=== PATIENT | male | born 1945 | race African-American/Black ===

== ENCOUNTER 2020-03-02 09:12 | Inpatient (IN) ==
[2020-03-02] MEDS ORDERED: DEXAMETHASONE 4 MG/1 ML VIAL IV STA (09:34)
[2020-03-02] MEDS ORDERED: ACETAMINOPHEN 500 MG TABLET PO STA (09:37)
[2020-03-02] MEDS ORDERED: IBUPROFEN 600 MG TABLET PO STA (09:40)
[2020-03-02 10:10] LABS: Basophils % 0.2 % (0.0-0.8); Hematocrit 46.6 VOL% (42.0-52.0); Hemoglobin 14.8 GM/DL (14.0-18.0); Immature Granulocytes % 0.5 %; Immature Granulocytes Absolute 0.03 #; Lymphocytes # 0.7 10*3/uL (1.4-4.0); Lymphocytes % 10.8 % (21.2-54.2); Mean Corpuscular HGB Conc 31.8 GM/DL (32-36); Mean Corpuscular Volume 86.9 FL (87-102); Mean Platelet Volume 12.9 FL (9.6-12.0); Monocytes % 6.1 % (1.7-12.7); NRBC # 0.02 10*3/uL; Neutrophils % 82.4 % (38.7-73.9); Platelet Count 124 T/CUMM (130-400); Red Blood Count 5.36 MC/CUMM (3.8-5.5); Red Cell Distribution Width 14.1 % (9.3-17.3); White Blood Count 6.2 T/CUMM (4-12)
[2020-03-02] MEDS ORDERED: AZITHROMYCIN INJ 500 MG in SODIUM CHLORIDE 0.9% 250 ML IV STA (10:14)
[2020-03-02] MEDS ORDERED: CETIRIZINE 10 MG TABLET PO STA (10:14)
[2020-03-02] MEDS ORDERED: FAMOTIDINE 20 MG/2 ML VIAL IV STA (10:14)
[2020-03-02 10:38] LABS: Albumin 3.1 G/DL (3.4-5.0); Bilirubin,Total 0.5 MG/DL (0.2-1.0); Osmolality,Calculated 282.2 MOS/KG (273-304); Potassium 4.4 MMOL/L (3.5-5.1); Total Protein 7.1 G/DL (6.4-8.3)
[2020-03-02] MEDS ORDERED: DEXTROSE 50% 25 GM/50 ML VIAL IV PRN (11:09)
[2020-03-02] MEDS ORDERED: GLUCAGON 1 MG VIAL IM PRN (11:09)
[2020-03-02] MEDS ORDERED: REMDESIVIR 200 MG in SODIUM CHLORIDE 0.9% 210 ML IV ONE (16:00)
[2020-03-02] MEDS: ENOXAPARIN 40 MG/0.4 ML SYRINGE SUBCUT SCH (17:20)
[2020-03-02] MEDS: cefTRIAXone 1,000 MG in SYRINGE 1 EACH IV SCH (17:25)
[2020-03-02] MEDS: ALBUTEROL INHALER 18 GM INH SCH (19:00)
[2020-03-02] MEDS: ASCORBIC ACID 500 MG TABLET PO SCH (21:00)
[2020-03-02] MEDS: FLUTICASONE/SALMETEROL 500-50 DISKUS 14 DOSE INH SCH (21:00)
[2020-03-03 04:38] LABS: Basophils % 0.1 % (0.0-0.8); Hematocrit 50.9 VOL% (42.0-52.0); Hemoglobin 15.9 GM/DL (14.0-18.0); Immature Granulocytes % 0.7 %; Immature Granulocytes Absolute 0.06 #; Lymphocytes # 1.2 10*3/uL (1.4-4.0); Lymphocytes % 13.6 % (21.2-54.2); Mean Corpuscular HGB Conc 31.2 GM/DL (32-36); Mean Corpuscular Volume 87.5 FL (87-102); Mean Platelet Volume 12.6 FL (9.6-12.0); NRBC # 0.04 10*3/uL; Neutrophils % 80.6 % (38.7-73.9); Platelet Count 144 T/CUMM (130-400); Red Blood Count 5.82 MC/CUMM (3.8-5.5); Red Cell Distribution Width 14.1 % (9.3-17.3); White Blood Count 8.5 T/CUMM (4-12)
[2020-03-03 05:03] LABS: Bilirubin,Total 0.4 MG/DL (0.2-1.0); Calcium 9.6 MG/DL (8.5-10.1); Osmolality,Calculated 286.8 MOS/KG (273-304); Potassium 4.4 MMOL/L (3.5-5.1); Total Protein 8.1 G/DL (6.4-8.3)
[2020-03-03 05:43] LABS: Risk Ratio 4.43; VLDL CHOLESTEROL 33.6 MG/DL
[2020-03-03] MEDS: ALBUTEROL INHALER 18 GM INH SCH ×3 (08:16→19:59)
[2020-03-03] MEDS: ZINC GLUCONATE 50 MG TABLET PO SCH (09:20)
[2020-03-03] MEDS: CETIRIZINE 10 MG TABLET PO SCH (09:20)
[2020-03-03] MEDS: CHOLECALCIFEROL 1,000 UNIT TABLET PO SCH (09:20)
[2020-03-03] MEDS: ASCORBIC ACID 500 MG TABLET PO SCH ×2 (09:20→21:41)
[2020-03-03] MEDS: AZITHROMYCIN 250 MG TABLET PO SCH (09:20)
[2020-03-03] MEDS: FLUTICASONE/SALMETEROL 500-50 DISKUS 14 DOSE INH SCH ×2 (09:22→21:39)
[2020-03-03] MEDS: DEXAMETHASONE 4 MG/1 ML VIAL IV SCH (09:23)
[2020-03-03] MEDS ORDERED: ACETAMINOPHEN 325 MG TABLET ONE (09:47)
[2020-03-03] MEDS: REMDESIVIR 100 MG in SODIUM CHLORIDE 0.9% 100 ML IV SCH (09:50)
[2020-03-03] MEDS ORDERED: ENOXAPARIN 60 MG/0.6 ML SYRINGE ONE (11:45)
[2020-03-03] MEDS: ENOXAPARIN 40 MG/0.4 ML SYRINGE SUBCUT SCH (11:46)
[2020-03-03] MEDS: INSULIN REGULAR 100 UNIT/ML SUBCUT SCH ×3 (11:54→21:41)
[2020-03-03] MEDS ORDERED: SODIUM CHLORIDE 0.9% 1,000 ML IV PRN (14:49)
[2020-03-03] MEDS: cefTRIAXone 1,000 MG in SYRINGE 1 EACH IV SCH (14:51)
[2020-03-03] MEDS: INSULIN GLARGINE 100 UNIT/ML SUBCUT SCH (21:40)
[2020-03-04 00:57] LABS: Basophils % 0.2 % (0.0-0.8); Hematocrit 45.7 VOL% (42.0-52.0); Hemoglobin 14.5 GM/DL (14.0-18.0); Immature Granulocytes % 0.6 %; Immature Granulocytes Absolute 0.04 #; Lymphocytes # 0.7 10*3/uL (1.4-4.0); Lymphocytes % 10.6 % (21.2-54.2); Mean Corpuscular HGB Conc 31.7 GM/DL (32-36); Mean Corpuscular Volume 86.2 FL (87-102); Monocytes % 6.4 % (1.7-12.7); Neutrophils % 82.2 % (38.7-73.9); Platelet Count 151 T/CUMM (130-400); Red Cell Distribution Width 14.1 % (9.3-17.3); White Blood Count 6.6 T/CUMM (4-12)
[2020-03-04] MEDS ORDERED: INSULIN REGULAR 100 UNIT/ML IV ONE (01:13)
[2020-03-04] MEDS: ALBUTEROL INHALER 18 GM INH SCH ×5 (01:28→21:11)
[2020-03-04 01:32] LABS: Albumin 2.7 G/DL (3.4-5.0); Bilirubin,Total 0.6 MG/DL (0.2-1.0); Calcium 9.4 MG/DL (8.5-10.1); Osmolality,Calculated 288.2 MOS/KG (273-304); Potassium 4.8 MMOL/L (3.5-5.1); Total Protein 6.7 G/DL (6.4-8.3)
[2020-03-04] MEDS ORDERED: INSULIN GLARGINE 100 UNIT/ML SUBCUT ONE (07:35)
[2020-03-04] MEDS: FLUTICASONE/SALMETEROL 500-50 DISKUS 14 DOSE INH SCH ×2 (08:51→20:46)
[2020-03-04] MEDS: DEXAMETHASONE 4 MG/1 ML VIAL IV SCH (08:51)
[2020-03-04] MEDS: REMDESIVIR 100 MG in SODIUM CHLORIDE 0.9% 100 ML IV SCH (08:51)
[2020-03-04] MEDS: ZINC GLUCONATE 50 MG TABLET PO SCH (08:52)
[2020-03-04] MEDS: ASCORBIC ACID 500 MG TABLET PO SCH ×2 (08:52→20:47)
[2020-03-04] MEDS: CHOLECALCIFEROL 1,000 UNIT TABLET PO SCH (08:52)
[2020-03-04] MEDS: CETIRIZINE 10 MG TABLET PO SCH (08:52)
[2020-03-04] MEDS: AZITHROMYCIN 250 MG TABLET PO SCH (08:52)
[2020-03-04] MEDS: ENOXAPARIN 40 MG/0.4 ML SYRINGE SUBCUT SCH (09:40)
[2020-03-04] MEDS: INSULIN REGULAR 100 UNIT/ML SUBCUT SCH ×4 (11:46→20:46)
[2020-03-04] MEDS: cefTRIAXone 1,000 MG in SYRINGE 1 EACH IV SCH (16:30)
[2020-03-04] MEDS: BRINZOLAMIDE BRIMONIDINE BOTH EYES SCH (20:46)
[2020-03-04] MEDS: LATANOPROST 0.005% OPH SOLN 2.5 ML BOTTLE BOTH EYES SCH (20:47)
[2020-03-04] MEDS: INSULIN GLARGINE 100 UNIT/ML SUBCUT SCH (20:47)
[2020-03-05] MEDS: ALBUTEROL INHALER 18 GM INH SCH ×4 (01:52→19:08)
[2020-03-05 06:05] LABS: Basophils % 0.2 % (0.0-0.8); Hematocrit 47.5 VOL% (42.0-52.0); Hemoglobin 14.9 GM/DL (14.0-18.0); Immature Granulocytes % 0.3 %; Immature Granulocytes Absolute 0.02 #; Lymphocytes # 0.9 10*3/uL (1.4-4.0); Lymphocytes % 13.9 % (21.2-54.2); Mean Corpuscular HGB Conc 31.4 GM/DL (32-36); Mean Corpuscular Volume 87.3 FL (87-102); Mean Platelet Volume 13.3 FL (9.6-12.0); Monocytes % 6.2 % (1.7-12.7); Neutrophils % 79.4 % (38.7-73.9); Platelet Count 185 T/CUMM (130-400); Red Blood Count 5.44 MC/CUMM (3.8-5.5); White Blood Count 6.4 T/CUMM (4-12)
[2020-03-05 06:30] LABS: Hypochromasia 1+; Microcytosis Slight; Platelet Estimate Adequate
[2020-03-05 06:33] LABS: Albumin 2.6 G/DL (3.4-5.0); Calcium 10.4 MG/DL (8.5-10.1); Osmolality,Calculated 286.8 MOS/KG (273-304); Potassium 4.7 MMOL/L (3.5-5.1)
[2020-03-05 06:41] LABS: Ferritin 319.5 ng/ml (26-388)
[2020-03-05] MEDS ORDERED: INSULIN GLARGINE 100 UNIT/ML SUBCUT SCH (07:40)
[2020-03-05] MEDS: INSULIN REGULAR 100 UNIT/ML SUBCUT SCH ×4 (09:28→21:20)
[2020-03-05] MEDS: OMEGA 3 ACID ETHYL ESTERS 1 GM CAPSULE PO SCH (09:28)
[2020-03-05] MEDS: LATANOPROST 0.005% OPH SOLN 2.5 ML BOTTLE BOTH EYES SCH ×4 (09:28→21:20)
[2020-03-05] MEDS: AZITHROMYCIN 250 MG TABLET PO SCH (09:28)
[2020-03-05] MEDS: DEXAMETHASONE 4 MG/1 ML VIAL IV SCH (09:28)
[2020-03-05] MEDS: hydroCHLOROthiazide 25 MG TABLET PO SCH (09:28)
[2020-03-05] MEDS: ZINC GLUCONATE 50 MG TABLET PO SCH (09:28)
[2020-03-05] MEDS: CETIRIZINE 10 MG TABLET PO SCH (09:28)
[2020-03-05] MEDS: ASPIRIN EC 81 MG TABLET PO SCH (09:28)
[2020-03-05] MEDS: ASCORBIC ACID 500 MG TABLET PO SCH ×2 (09:28→21:20)
[2020-03-05] MEDS: CHOLECALCIFEROL 1,000 UNIT TABLET PO SCH (09:28)
[2020-03-05] MEDS: FLUTICASONE/SALMETEROL 500-50 DISKUS 14 DOSE INH SCH ×2 (09:28→21:20)
[2020-03-05] MEDS: REMDESIVIR 100 MG in SODIUM CHLORIDE 0.9% 100 ML IV SCH (11:32)
[2020-03-05] MEDS: cefTRIAXone 1,000 MG in SYRINGE 1 EACH IV SCH (13:35)
[2020-03-05] MEDS: ENOXAPARIN 40 MG/0.4 ML SYRINGE SUBCUT SCH (13:35)
[2020-03-05] MEDS: BRINZOLAMIDE BRIMONIDINE BOTH EYES SCH (21:20)
[2020-03-06] MEDS: ALBUTEROL INHALER 18 GM INH SCH ×4 (00:13→19:15)
[2020-03-06 04:12] LABS: Hematocrit 45.2 VOL% (42.0-52.0); Hemoglobin 14.1 GM/DL (14.0-18.0); Immature Granulocytes % 0.8 %; Immature Granulocytes Absolute 0.04 #; Lymphocytes # 0.7 10*3/uL (1.4-4.0); Lymphocytes % 14.8 % (21.2-54.2); Mean Corpuscular HGB Conc 31.2 GM/DL (32-36); Mean Corpuscular Volume 86.9 FL (87-102); Mean Platelet Volume 13.1 FL (9.6-12.0); Monocytes % 8.5 % (1.7-12.7); Neutrophils % 75.9 % (38.7-73.9); Platelet Count 183 T/CUMM (130-400); Red Cell Distribution Width 14.1 % (9.3-17.3); White Blood Count 4.9 T/CUMM (4-12)
[2020-03-06 04:41] LABS: Albumin 2.4 G/DL (3.4-5.0); Bilirubin,Total 0.5 MG/DL (0.2-1.0); Calcium 9.7 MG/DL (8.5-10.1); Potassium 4.2 MMOL/L (3.5-5.1); Total Protein 7.2 G/DL (6.4-8.3)
[2020-03-06 07:02] LABS: Lymphocytes 12 % (20-55); Segmented Neutrophils 85 % (50-85); Total Cells Counted 100
[2020-03-06 07:19] LABS: Platelet Estimate Normal
[2020-03-06 07:21] LABS: Anisocytosis Slight; Microcytosis Slight; Target Cells Few
[2020-03-06] MEDS: REMDESIVIR 100 MG in SODIUM CHLORIDE 0.9% 100 ML IV SCH (09:22)
[2020-03-06] MEDS: LATANOPROST 0.005% OPH SOLN 2.5 ML BOTTLE BOTH EYES SCH ×3 (09:22→20:50)
[2020-03-06] MEDS: ASPIRIN EC 81 MG TABLET PO SCH (09:22)
[2020-03-06] MEDS: OMEGA 3 ACID ETHYL ESTERS 1 GM CAPSULE PO SCH (09:22)
[2020-03-06] MEDS: CETIRIZINE 10 MG TABLET PO SCH (09:22)
[2020-03-06] MEDS: CHOLECALCIFEROL 1,000 UNIT TABLET PO SCH (09:22)
[2020-03-06] MEDS: ASCORBIC ACID 500 MG TABLET PO SCH ×2 (09:22→20:50)
[2020-03-06] MEDS: hydroCHLOROthiazide 25 MG TABLET PO SCH (09:22)
[2020-03-06] MEDS: DEXAMETHASONE 4 MG/1 ML VIAL IV SCH (09:22)
[2020-03-06] MEDS: FLUTICASONE/SALMETEROL 500-50 DISKUS 14 DOSE INH SCH ×2 (09:22→20:50)
[2020-03-06] MEDS: AZITHROMYCIN 250 MG TABLET PO SCH (09:22)
[2020-03-06] MEDS: ZINC GLUCONATE 50 MG TABLET PO SCH (09:22)
[2020-03-06] MEDS: INSULIN REGULAR 100 UNIT/ML SUBCUT SCH ×4 (09:22→21:41)
[2020-03-06] MEDS ORDERED: FUROSEMIDE 40 MG/4 ML VIAL IV ONE (10:06)
[2020-03-06] MEDS: ENOXAPARIN 40 MG/0.4 ML SYRINGE SUBCUT SCH (13:09)
[2020-03-06] MEDS: cefTRIAXone 1,000 MG in SYRINGE 1 EACH IV SCH (17:25)
[2020-03-06] MEDS: INSULIN GLARGINE 100 UNIT/ML SUBCUT SCH (20:50)
[2020-03-06] MEDS: BRINZOLAMIDE BRIMONIDINE BOTH EYES SCH (20:50)
[2020-03-07] MEDS: ALBUTEROL INHALER 18 GM INH SCH ×4 (02:29→19:02)
[2020-03-07 06:31] LABS: Basophils % 0.2 % (0.0-0.8); Hematocrit 47.2 VOL% (42.0-52.0); Hemoglobin 14.9 GM/DL (14.0-18.0); Immature Granulocytes % 0.7 %; Immature Granulocytes Absolute 0.04 #; Lymphocytes # 0.9 10*3/uL (1.4-4.0); Lymphocytes % 14.8 % (21.2-54.2); Mean Corpuscular HGB Conc 31.6 GM/DL (32-36); Mean Corpuscular Volume 86.1 FL (87-102); Mean Platelet Volume 12.5 FL (9.6-12.0); Monocytes % 8.7 % (1.7-12.7); Neutrophils % 75.6 % (38.7-73.9); Platelet Count 251 T/CUMM (130-400); Red Blood Count 5.48 MC/CUMM (3.8-5.5); White Blood Count 5.8 T/CUMM (4-12)
[2020-03-07 06:58] LABS: Albumin 2.3 G/DL (3.4-5.0); Bilirubin,Total 0.6 MG/DL (0.2-1.0); Calcium 10.1 MG/DL (8.5-10.1); Osmolality,Calculated 287.7 MOS/KG (273-304); Potassium 4.2 MMOL/L (3.5-5.1); Total Protein 7.4 G/DL (6.4-8.3)
[2020-03-07 08:02] LABS: Anisocytosis 1+; Band Neutrophils 5 % (0-10); Burr Cells Few; Lymphocytes 14 % (20-55); Nucleated Red Blood Cells 1 (0-5); Platelet Estimate Normal; Segmented Neutrophils 72 % (50-85); Spherocytes Few; Total Cells Counted 100
[2020-03-07] MEDS: INSULIN REGULAR 100 UNIT/ML SUBCUT SCH ×4 (08:33→20:33)
[2020-03-07] MEDS: ZINC GLUCONATE 50 MG TABLET PO SCH (09:20)
[2020-03-07] MEDS: LATANOPROST 0.005% OPH SOLN 2.5 ML BOTTLE BOTH EYES SCH ×3 (09:20→20:33)
[2020-03-07] MEDS: ASPIRIN EC 81 MG TABLET PO SCH (09:20)
[2020-03-07] MEDS: ASCORBIC ACID 500 MG TABLET PO SCH ×2 (09:20→20:33)
[2020-03-07] MEDS: CHOLECALCIFEROL 1,000 UNIT TABLET PO SCH (09:20)
[2020-03-07] MEDS: DEXAMETHASONE 4 MG/1 ML VIAL IV SCH (09:20)
[2020-03-07] MEDS: hydroCHLOROthiazide 25 MG TABLET PO SCH (09:20)
[2020-03-07] MEDS: FLUTICASONE/SALMETEROL 500-50 DISKUS 14 DOSE INH SCH ×2 (09:20→20:33)
[2020-03-07] MEDS: OMEGA 3 ACID ETHYL ESTERS 1 GM CAPSULE PO SCH (09:20)
[2020-03-07] MEDS: CETIRIZINE 10 MG TABLET PO SCH (10:23)
[2020-03-07] MEDS: ENOXAPARIN 40 MG/0.4 ML SYRINGE SUBCUT SCH (11:46)
[2020-03-07] MEDS: cefTRIAXone 1,000 MG in SYRINGE 1 EACH IV SCH (13:34)
[2020-03-07] MEDS: ATORVASTATIN 40 MG TABLET PO SCH (20:33)
[2020-03-07] MEDS: INSULIN GLARGINE 100 UNIT/ML SUBCUT SCH (20:33)
[2020-03-07] MEDS: BRINZOLAMIDE BRIMONIDINE BOTH EYES SCH (20:33)
[2020-03-08] MEDS: ALBUTEROL INHALER 18 GM INH SCH ×4 (00:16→22:42)
[2020-03-08 03:42] LABS: ABG Base Excess 7.4 MMOL/L (-2.5-2.5); ABG HCO3 31.1 MMOL/L (20-26); ABG Oxygen Saturation 94.8 % (95-100); ABG PCO2 46.1 MM HG (35-48); ABG PH 7.457 (7.35-7.45); ABG PO2 77.5 MM HG (80-95); ABG TCO2 27.5 MMOL/L (23-27); Allen Test Positive; Pt O2 Delivery Device Other
[2020-03-08 04:08] LABS: Basophils % 0.2 % (0.0-0.8); Eosinophils % 0.3 % (0.00-10.9); Hematocrit 48.3 VOL% (42.0-52.0); Hemoglobin 15.1 GM/DL (14.0-18.0); Immature Granulocytes % 0.8 %; Immature Granulocytes Absolute 0.05 #; Lymphocytes % 15.6 % (21.2-54.2); Mean Corpuscular HGB Conc 31.3 GM/DL (32-36); Mean Corpuscular Volume 87.3 FL (87-102); Mean Platelet Volume 12.4 FL (9.6-12.0); Monocytes % 9.9 % (1.7-12.7); Neutrophils % 73.2 % (38.7-73.9); Platelet Count 268 T/CUMM (130-400); Red Blood Count 5.53 MC/CUMM (3.8-5.5); Red Cell Distribution Width 13.8 % (9.3-17.3); White Blood Count 6.5 T/CUMM (4-12)
[2020-03-08 04:29] LABS: Lymphocytes 15 % (20-55); Platelet Estimate Adequate; Segmented Neutrophils 78 % (50-85); Total Cells Counted 100
[2020-03-08 04:32] LABS: Ferritin 186.1 ng/ml (26-388)
[2020-03-08 04:43] LABS: Albumin 2.2 G/DL (3.4-5.0); Bilirubin,Total 0.6 MG/DL (0.2-1.0); Calcium 9.9 MG/DL (8.5-10.1); Osmolality,Calculated 285.8 MOS/KG (273-304); Total Protein 7.2 G/DL (6.4-8.3)
[2020-03-08] MEDS ORDERED: FUROSEMIDE 40 MG/4 ML VIAL IV ONE (06:19)
[2020-03-08] MEDS: INSULIN REGULAR 100 UNIT/ML SUBCUT SCH ×4 (07:47→22:44)
[2020-03-08] MEDS: FLUTICASONE/SALMETEROL 500-50 DISKUS 14 DOSE INH SCH ×2 (09:15→22:43)
[2020-03-08] MEDS: DEXAMETHASONE 4 MG/1 ML VIAL IV SCH (09:15)
[2020-03-08] MEDS: ASPIRIN EC 81 MG TABLET PO SCH (09:16)
[2020-03-08] MEDS: ASCORBIC ACID 500 MG TABLET PO SCH ×2 (09:16→22:45)
[2020-03-08] MEDS: CETIRIZINE 10 MG TABLET PO SCH (09:16)
[2020-03-08] MEDS: CHOLECALCIFEROL 1,000 UNIT TABLET PO SCH (09:16)
[2020-03-08] MEDS: OMEGA 3 ACID ETHYL ESTERS 1 GM CAPSULE PO SCH (09:16)
[2020-03-08] MEDS: ZINC GLUCONATE 50 MG TABLET PO SCH (09:16)
[2020-03-08] MEDS: hydroCHLOROthiazide 25 MG TABLET PO SCH (09:16)
[2020-03-08] MEDS: LATANOPROST 0.005% OPH SOLN 2.5 ML BOTTLE BOTH EYES SCH ×3 (09:16→22:45)
[2020-03-08] MEDS: ENOXAPARIN 40 MG/0.4 ML SYRINGE SUBCUT SCH (11:10)
[2020-03-08] MEDS: cefTRIAXone 1,000 MG in SYRINGE 1 EACH IV SCH (14:50)
[2020-03-08] MEDS: INSULIN LISPRO 100 UNIT/ML SUBCUT SCH (16:41)
[2020-03-08] MEDS ORDERED: INSULIN REGULAR 100 UNIT/ML SUBCUT ONE (18:20)
[2020-03-08] MEDS: LACTOBACILLUS RHAMNOSUS GG CAPSULE PO SCH (22:43)
[2020-03-08] MEDS: CIPROFLOXACIN 500 MG TABLET PO SCH (22:43)
[2020-03-08] MEDS: INSULIN GLARGINE 100 UNIT/ML SUBCUT SCH (22:43)
[2020-03-08] MEDS: BRINZOLAMIDE BRIMONIDINE BOTH EYES SCH (22:43)
[2020-03-08] MEDS: ATORVASTATIN 40 MG TABLET PO SCH (22:45)
[2020-03-09] MEDS: ALBUTEROL INHALER 18 GM INH SCH ×4 (00:08→22:02)
[2020-03-09 04:00] LABS: ABG Base Excess 8.4 MMOL/L (-2.5-2.5); ABG HCO3 32.1 MMOL/L (20-26); ABG Oxygen Saturation 93.2 % (95-100); ABG PCO2 46.9 MM HG (35-48); ABG PH 7.465 (7.35-7.45); ABG PO2 68.5 MM HG (80-95); ABG TCO2 28.5 MMOL/L (23-27)
[2020-03-09 05:11] LABS: Basophils % 0.3 % (0.0-0.8); Eosinophils # 0.1 10*3/uL (0.0-0.87); Hematocrit 47.4 VOL% (42.0-52.0); Hemoglobin 14.8 GM/DL (14.0-18.0); Immature Granulocytes % 1.3 %; Immature Granulocytes Absolute 0.08 #; Lymphocytes # 1.1 10*3/uL (1.4-4.0); Lymphocytes % 18.8 % (21.2-54.2); Mean Corpuscular HGB Conc 31.2 GM/DL (32-36); Mean Corpuscular Volume 85.6 FL (87-102); Mean Platelet Volume 12.1 FL (9.6-12.0); Monocytes % 10.7 % (1.7-12.7); Neutrophils % 67.9 % (38.7-73.9); Platelet Count 289 T/CUMM (130-400); Red Blood Count 5.54 MC/CUMM (3.8-5.5); Red Cell Distribution Width 13.9 % (9.3-17.3); White Blood Count 6.1 T/CUMM (4-12)
[2020-03-09 05:37] LABS: Lymphocytes 21 % (20-55); Platelet Estimate Adequate; Segmented Neutrophils 70 % (50-85); Total Cells Counted 100
[2020-03-09 05:39] LABS: Albumin 2.3 G/DL (3.4-5.0); Calcium 9.9 MG/DL (8.5-10.1); Ferritin 190.9 ng/ml (26-388); Potassium 3.7 MMOL/L (3.5-5.1); Total Protein 7.1 G/DL (6.4-8.3)
[2020-03-09 06:45] LABS: Sedimentation Rate-Westergren 27 MM/HR (0-20)
[2020-03-09] MEDS ORDERED: FUROSEMIDE 40 MG/4 ML VIAL IV ONE (07:20)
[2020-03-09] MEDS: ASCORBIC ACID 500 MG TABLET PO SCH ×2 (08:40→22:06)
[2020-03-09] MEDS: ZINC GLUCONATE 50 MG TABLET PO SCH (08:40)
[2020-03-09] MEDS: ASPIRIN EC 81 MG TABLET PO SCH (08:41)
[2020-03-09] MEDS: DEXAMETHASONE 4 MG/1 ML VIAL IV SCH (08:41)
[2020-03-09] MEDS: OMEGA 3 ACID ETHYL ESTERS 1 GM CAPSULE PO SCH (08:41)
[2020-03-09] MEDS: CIPROFLOXACIN 500 MG TABLET PO SCH ×2 (08:41→22:02)
[2020-03-09] MEDS: hydroCHLOROthiazide 25 MG TABLET PO SCH (08:41)
[2020-03-09] MEDS: CETIRIZINE 10 MG TABLET PO SCH (08:41)
[2020-03-09] MEDS: LACTOBACILLUS RHAMNOSUS GG CAPSULE PO SCH ×2 (08:41→22:02)
[2020-03-09] MEDS: CHOLECALCIFEROL 1,000 UNIT TABLET PO SCH (08:41)
[2020-03-09] MEDS: FLUTICASONE/SALMETEROL 500-50 DISKUS 14 DOSE INH SCH ×2 (08:42→22:01)
[2020-03-09] MEDS: INSULIN LISPRO 100 UNIT/ML SUBCUT SCH ×3 (08:42→16:34)
[2020-03-09] MEDS: INSULIN REGULAR 100 UNIT/ML SUBCUT SCH ×4 (08:42→22:41)
[2020-03-09] MEDS: LATANOPROST 0.005% OPH SOLN 2.5 ML BOTTLE BOTH EYES SCH ×3 (08:43→22:13)
[2020-03-09] MEDS: ENOXAPARIN 40 MG/0.4 ML SYRINGE SUBCUT SCH (12:00)
[2020-03-09] MEDS: BRINZOLAMIDE BRIMONIDINE BOTH EYES SCH (22:02)
[2020-03-09] MEDS: ATORVASTATIN 40 MG TABLET PO SCH (22:03)
[2020-03-09] MEDS: INSULIN GLARGINE 100 UNIT/ML SUBCUT SCH (22:03)
[2020-03-10] MEDS: ALBUTEROL INHALER 18 GM INH SCH ×4 (00:48→18:47)
[2020-03-10 03:30] LABS: ABG Base Excess 8.6 MMOL/L (-2.5-2.5); ABG HCO3 33.3 MMOL/L (20-26); ABG Oxygen Saturation 93.9 % (95-100); ABG PCO2 45.4 MM HG (35-48); ABG PH 7.483 (7.35-7.45); ABG PO2 67.4 MM HG (80-95); ABG TCO2 34.7 MMOL/L (23-27)
[2020-03-10] MEDS ORDERED: FUROSEMIDE 40 MG/4 ML VIAL IV ONE (06:58)
[2020-03-10 07:06] LABS: Albumin 2.3 G/DL (3.4-5.0); Bilirubin,Total 1.1 MG/DL (0.2-1.0); Ferritin 199.6 ng/ml (26-388); Osmolality,Calculated 285.2 MOS/KG (273-304); Potassium 4.3 MMOL/L (3.5-5.1); Total Protein 7.1 G/DL (6.4-8.3)
[2020-03-10 07:21] LABS: Basophils % 0.5 % (0.0-0.8); Eosinophils # 0.1 10*3/uL (0.0-0.87); Eosinophils % 0.8 % (0.00-10.9); Hematocrit 48.2 VOL% (42.0-52.0); Immature Granulocytes % 1.7 %; Immature Granulocytes Absolute 0.11 #; Lymphocytes # 1.4 10*3/uL (1.4-4.0); Lymphocytes % 21.3 % (21.2-54.2); Mean Corpuscular HGB Conc 31.1 GM/DL (32-36); Mean Corpuscular Volume 87.3 FL (87-102); Mean Platelet Volume 12.3 FL (9.6-12.0); Monocytes % 11.3 % (1.7-12.7); Neutrophils % 64.4 % (38.7-73.9); Platelet Count 309 T/CUMM (130-400); Red Blood Count 5.52 MC/CUMM (3.8-5.5); Red Cell Distribution Width 13.8 % (9.3-17.3); White Blood Count 6.7 T/CUMM (4-12)
[2020-03-10 07:26] LABS: Lymphocytes 26 % (20-55); Platelet Estimate Normal; Segmented Neutrophils 64 % (50-85); Total Cells Counted 100
[2020-03-10 07:32] LABS: Sedimentation Rate-Westergren 20 MM/HR (0-20)
[2020-03-10] MEDS: FLUTICASONE/SALMETEROL 500-50 DISKUS 14 DOSE INH SCH ×2 (09:33→21:35)
[2020-03-10] MEDS: INSULIN LISPRO 100 UNIT/ML SUBCUT SCH ×3 (09:33→17:04)
[2020-03-10] MEDS: CETIRIZINE 10 MG TABLET PO SCH (09:33)
[2020-03-10] MEDS: CIPROFLOXACIN 500 MG TABLET PO SCH ×2 (09:33→21:35)
[2020-03-10] MEDS: ASCORBIC ACID 500 MG TABLET PO SCH ×2 (09:33→21:35)
[2020-03-10] MEDS: INSULIN REGULAR 100 UNIT/ML SUBCUT SCH ×4 (09:33→21:35)
[2020-03-10] MEDS: LACTOBACILLUS RHAMNOSUS GG CAPSULE PO SCH ×2 (09:33→21:35)
[2020-03-10] MEDS: LATANOPROST 0.005% OPH SOLN 2.5 ML BOTTLE BOTH EYES SCH ×3 (09:33→21:35)
[2020-03-10] MEDS: hydroCHLOROthiazide 25 MG TABLET PO SCH (09:33)
[2020-03-10] MEDS: OMEGA 3 ACID ETHYL ESTERS 1 GM CAPSULE PO SCH (09:33)
[2020-03-10] MEDS: ZINC GLUCONATE 50 MG TABLET PO SCH (09:33)
[2020-03-10] MEDS: DEXAMETHASONE 4 MG/1 ML VIAL IV SCH (09:33)
[2020-03-10] MEDS: CHOLECALCIFEROL 1,000 UNIT TABLET PO SCH (09:33)
[2020-03-10] MEDS: FAMOTIDINE 20 MG TABLET PO SCH (09:33)
[2020-03-10] MEDS: ASPIRIN EC 81 MG TABLET PO SCH (09:33)
[2020-03-10] MEDS: ENOXAPARIN 40 MG/0.4 ML SYRINGE SUBCUT SCH (12:31)
[2020-03-10] MEDS ORDERED: LORATADINE 10 MG TABLET PO PRN (15:44)
[2020-03-10] MEDS: BRINZOLAMIDE BRIMONIDINE BOTH EYES SCH (21:35)
[2020-03-10] MEDS: ATORVASTATIN 40 MG TABLET PO SCH (21:35)
[2020-03-10] MEDS: INSULIN GLARGINE 100 UNIT/ML SUBCUT SCH (21:35)
[2020-03-11] MEDS: ALBUTEROL INHALER 18 GM INH SCH ×4 (02:17→19:10)
[2020-03-11 05:06] LABS: ABG Base Excess 8.8 MMOL/L (-2.5-2.5); ABG HCO3 33.7 MMOL/L (20-26); ABG Oxygen Saturation 93.9 % (95-100); ABG PCO2 46.6 MM HG (35-48); ABG PH 7.477 (7.35-7.45); ABG PO2 69.9 MM HG (80-95); ABG TCO2 35.1 MMOL/L (23-27)
[2020-03-11 06:35] LABS: Albumin 2.3 G/DL (3.4-5.0); Bilirubin,Total 1.1 MG/DL (0.2-1.0); Calcium 10.1 MG/DL (8.5-10.1); Ferritin 186.7 ng/ml (26-388); Osmolality,Calculated 282.5 MOS/KG (273-304); Total Protein 6.9 G/DL (6.4-8.3)
[2020-03-11 06:42] LABS: Basophils % 0.3 % (0.0-0.8); Eosinophils % 0.2 % (0.00-10.9); Hematocrit 48.5 VOL% (42.0-52.0); Hemoglobin 15.1 GM/DL (14.0-18.0); Immature Granulocytes % 1.8 %; Immature Granulocytes Absolute 0.11 #; Lymphocytes % 16.4 % (21.2-54.2); Mean Corpuscular HGB Conc 31.1 GM/DL (32-36); Mean Corpuscular Volume 87.5 FL (87-102); Mean Platelet Volume 12.2 FL (9.6-12.0); Neutrophils % 72.3 % (38.7-73.9); Platelet Count 299 T/CUMM (130-400); Red Blood Count 5.54 MC/CUMM (3.8-5.5); Red Cell Distribution Width 13.6 % (9.3-17.3); White Blood Count 6.1 T/CUMM (4-12)
[2020-03-11 07:00] LABS: Lymphocytes 18 % (20-55); Platelet Estimate Adequate; Segmented Neutrophils 77 % (50-85); Total Cells Counted 100
[2020-03-11 07:53] LABS: Sedimentation Rate-Westergren 32 MM/HR (0-20)
[2020-03-11] MEDS: FLUTICASONE/SALMETEROL 500-50 DISKUS 14 DOSE INH SCH ×2 (09:31→20:35)
[2020-03-11] MEDS: INSULIN REGULAR 100 UNIT/ML SUBCUT SCH ×4 (09:32→20:35)
[2020-03-11] MEDS: CETIRIZINE 10 MG TABLET PO SCH (09:32)
[2020-03-11] MEDS: LACTOBACILLUS RHAMNOSUS GG CAPSULE PO SCH ×2 (09:32→20:35)
[2020-03-11] MEDS: ZINC GLUCONATE 50 MG TABLET PO SCH (09:32)
[2020-03-11] MEDS: CHOLECALCIFEROL 1,000 UNIT TABLET PO SCH (09:32)
[2020-03-11] MEDS: ASCORBIC ACID 500 MG TABLET PO SCH ×2 (09:32→20:35)
[2020-03-11] MEDS: DEXAMETHASONE 4 MG/1 ML VIAL IV SCH (09:32)
[2020-03-11] MEDS: FAMOTIDINE 20 MG TABLET PO SCH (09:32)
[2020-03-11] MEDS: FUROSEMIDE 40 MG/4 ML VIAL IV SCH (09:32)
[2020-03-11] MEDS: CIPROFLOXACIN 500 MG TABLET PO SCH ×2 (09:32→20:35)
[2020-03-11] MEDS: INSULIN LISPRO 100 UNIT/ML SUBCUT SCH ×3 (09:32→17:57)
[2020-03-11] MEDS: OMEGA 3 ACID ETHYL ESTERS 1 GM CAPSULE PO SCH (09:32)
[2020-03-11] MEDS: ASPIRIN EC 81 MG TABLET PO SCH (09:32)
[2020-03-11] MEDS: LATANOPROST 0.005% OPH SOLN 2.5 ML BOTTLE BOTH EYES SCH ×3 (09:32→20:35)
[2020-03-11] MEDS: hydroCHLOROthiazide 25 MG TABLET PO SCH (09:32)
[2020-03-11] MEDS: ENOXAPARIN 40 MG/0.4 ML SYRINGE SUBCUT SCH (12:25)
[2020-03-11] MEDS: ATORVASTATIN 40 MG TABLET PO SCH (20:35)
[2020-03-11] MEDS: BRINZOLAMIDE BRIMONIDINE BOTH EYES SCH (20:35)
[2020-03-11] MEDS: INSULIN GLARGINE 100 UNIT/ML SUBCUT SCH (20:35)
[2020-03-12] MEDS: ALBUTEROL INHALER 18 GM INH SCH ×4 (02:34→18:09)
[2020-03-12 05:04] LABS: Allen Test Positive; Pt O2 Delivery Device Other
[2020-03-12 05:07] LABS: ABG Base Excess 11.8 MMOL/L (-2.5-2.5); ABG HCO3 37.2 MMOL/L (20-26); ABG Oxygen Saturation 94.8 % (95-100); ABG PCO2 49.8 MM HG (35-48); ABG PH 7.491 (7.35-7.45); ABG PO2 73.4 MM HG (80-95); ABG TCO2 38.7 MMOL/L (23-27)
[2020-03-12 05:45] LABS: Basophils % 0.3 % (0.0-0.8); Eosinophils % 0.3 % (0.00-10.9); Hematocrit 48.9 VOL% (42.0-52.0); Hemoglobin 15.2 GM/DL (14.0-18.0); Immature Granulocytes % 1.1 %; Immature Granulocytes Absolute 0.09 #; Lymphocytes % 24.7 % (21.2-54.2); Mean Corpuscular HGB Conc 31.1 GM/DL (32-36); Monocytes % 9.9 % (1.7-12.7); Neutrophils % 63.7 % (38.7-73.9); Platelet Count 314 T/CUMM (130-400); Red Blood Count 5.62 MC/CUMM (3.8-5.5); Red Cell Distribution Width 13.7 % (9.3-17.3)
[2020-03-12 06:21] LABS: Albumin 2.5 G/DL (3.4-5.0); Bilirubin,Total 1.6 MG/DL (0.2-1.0); Calcium 10.4 MG/DL (8.5-10.1); Ferritin 202.6 ng/ml (26-388); Osmolality,Calculated 280.1 MOS/KG (273-304); Potassium 3.6 MMOL/L (3.5-5.1); Total Protein 7.1 G/DL (6.4-8.3)
[2020-03-12 07:19] LABS: Sedimentation Rate-Westergren 30 MM/HR (0-20)
[2020-03-12] MEDS: ASPIRIN EC 81 MG TABLET PO SCH (08:55)
[2020-03-12] MEDS: FAMOTIDINE 20 MG TABLET PO SCH (08:55)
[2020-03-12] MEDS: CHOLECALCIFEROL 1,000 UNIT TABLET PO SCH (08:56)
[2020-03-12] MEDS: ASCORBIC ACID 500 MG TABLET PO SCH ×2 (08:56→21:18)
[2020-03-12] MEDS: OMEGA 3 ACID ETHYL ESTERS 1 GM CAPSULE PO SCH (08:56)
[2020-03-12] MEDS: hydroCHLOROthiazide 25 MG TABLET PO SCH (08:56)
[2020-03-12] MEDS: ZINC GLUCONATE 50 MG TABLET PO SCH (08:56)
[2020-03-12] MEDS: LACTOBACILLUS RHAMNOSUS GG CAPSULE PO SCH ×2 (08:56→21:18)
[2020-03-12] MEDS: CIPROFLOXACIN 500 MG TABLET PO SCH (08:56)
[2020-03-12] MEDS: INSULIN LISPRO 100 UNIT/ML SUBCUT SCH ×3 (08:57→17:05)
[2020-03-12] MEDS: FLUTICASONE/SALMETEROL 500-50 DISKUS 14 DOSE INH SCH ×2 (08:58→21:17)
[2020-03-12] MEDS: LATANOPROST 0.005% OPH SOLN 2.5 ML BOTTLE BOTH EYES SCH ×3 (08:59→21:31)
[2020-03-12] MEDS: INSULIN REGULAR 100 UNIT/ML SUBCUT SCH ×4 (09:22→21:19)
[2020-03-12] MEDS: CETIRIZINE 10 MG TABLET PO SCH (09:23)
[2020-03-12] MEDS: FUROSEMIDE 40 MG/4 ML VIAL IV SCH (10:42)
[2020-03-12] MEDS: DEXAMETHASONE 4 MG/1 ML VIAL IV SCH (10:42)
[2020-03-12] MEDS: ENOXAPARIN 40 MG/0.4 ML SYRINGE SUBCUT SCH (11:59)
[2020-03-12] MEDS: ATORVASTATIN 40 MG TABLET PO SCH (21:18)
[2020-03-12] MEDS: INSULIN GLARGINE 100 UNIT/ML SUBCUT SCH (21:18)
[2020-03-12] MEDS: BRINZOLAMIDE BRIMONIDINE BOTH EYES SCH (21:26)
[2020-03-13] MEDS: ALBUTEROL INHALER 18 GM INH SCH ×5 (02:51→18:12)
[2020-03-13 03:24] LABS: ABG Base Excess 11.2 MMOL/L (-2.5-2.5); ABG HCO3 36.6 MMOL/L (20-26); ABG Oxygen Saturation 96.6 % (95-100); ABG PCO2 49.9 MM HG (35-48); ABG PH 7.483 (7.35-7.45); ABG PO2 87.2 MM HG (80-95); ABG TCO2 38.1 MMOL/L (23-27)
[2020-03-13 05:29] LABS: Basophils % 0.2 % (0.0-0.8); Eosinophils % 0.4 % (0.00-10.9); Hematocrit 47.7 VOL% (42.0-52.0); Hemoglobin 15.1 GM/DL (14.0-18.0); Immature Granulocytes % 1.2 %; Lymphocytes # 2.1 10*3/uL (1.4-4.0); Lymphocytes % 25.8 % (21.2-54.2); Mean Corpuscular HGB Conc 31.7 GM/DL (32-36); Mean Corpuscular Volume 86.7 FL (87-102); Mean Platelet Volume 12.4 FL (9.6-12.0); Monocytes % 10.6 % (1.7-12.7); Neutrophils % 61.8 % (38.7-73.9); Platelet Count 278 T/CUMM (130-400); Red Cell Distribution Width 13.4 % (9.3-17.3)
[2020-03-13 06:00] LABS: Alanine Aminotransferase 40 U/L (16-61); Albumin 2.6 G/DL (3.4-5.0); Alkaline Phosphatase 97 U/L (45-117); Aspartate Amino Transferase 15 U/L (0-37); Blood Urea Nitrogen 39 MG/DL (7-18); Calcium 10.2 MG/DL (8.5-10.1); Carbon Dioxide 35 MMOL/L (21-32); Estimated Glom Filtration Rate 131 ML/MIN; Ferritin 209.3 ng/ml (26-388); Glucose 192 MG/DL (74-106); Osmolality,Calculated 275.7 MOS/KG (273-304); Potassium 3.6 MMOL/L (3.5-5.1); Sodium 131 MMOL/L (136-145)
[2020-03-13 06:52] LABS: Sedimentation Rate-Westergren 25 MM/HR (0-20)
[2020-03-13] MEDS: OMEGA 3 ACID ETHYL ESTERS 1 GM CAPSULE PO SCH (08:51)
[2020-03-13] MEDS: CHOLECALCIFEROL 1,000 UNIT TABLET PO SCH (08:52)
[2020-03-13] MEDS: ASPIRIN EC 81 MG TABLET PO SCH (08:52)
[2020-03-13] MEDS: hydroCHLOROthiazide 25 MG TABLET PO SCH (08:53)
[2020-03-13] MEDS: FAMOTIDINE 20 MG TABLET PO SCH (08:53)
[2020-03-13] MEDS: ASCORBIC ACID 500 MG TABLET PO SCH ×2 (08:53→21:43)
[2020-03-13] MEDS: LACTOBACILLUS RHAMNOSUS GG CAPSULE PO SCH ×2 (08:53→21:43)
[2020-03-13] MEDS: CETIRIZINE 10 MG TABLET PO SCH (08:53)
[2020-03-13] MEDS: INSULIN REGULAR 100 UNIT/ML SUBCUT SCH ×4 (08:54→21:45)
[2020-03-13] MEDS: FLUTICASONE/SALMETEROL 500-50 DISKUS 14 DOSE INH SCH ×2 (08:54→21:44)
[2020-03-13] MEDS: INSULIN LISPRO 100 UNIT/ML SUBCUT SCH ×3 (08:55→15:46)
[2020-03-13] MEDS: FUROSEMIDE 40 MG/4 ML VIAL IV SCH (08:55)
[2020-03-13] MEDS: POLYETHYLENE GLYCOL POWDER 17 GM PACK PO SCH (10:41)
[2020-03-13] MEDS: ZINC GLUCONATE 50 MG TABLET PO SCH (10:43)
[2020-03-13] MEDS: DOCUSATE SODIUM 100 MG CAPSULE PO SCH (10:43)
[2020-03-13] MEDS: LATANOPROST 0.005% OPH SOLN 2.5 ML BOTTLE BOTH EYES SCH ×3 (10:44→21:45)
[2020-03-13] MEDS: ENOXAPARIN 40 MG/0.4 ML SYRINGE SUBCUT SCH (10:44)
[2020-03-13] MEDS ORDERED: POTASSIUM CHLORIDE 20 MEQ TABLET PO ONE (11:00)
[2020-03-13] MEDS: BRINZOLAMIDE BRIMONIDINE BOTH EYES SCH (21:44)
[2020-03-13] MEDS: ATORVASTATIN 40 MG TABLET PO SCH (21:44)
[2020-03-13] MEDS: INSULIN GLARGINE 100 UNIT/ML SUBCUT SCH (21:45)
[2020-03-14] MEDS: ALBUTEROL INHALER 18 GM INH SCH ×5 (02:04→17:59)
[2020-03-14 06:00] LABS: Albumin 2.6 G/DL (3.4-5.0); Bilirubin,Total 2.2 MG/DL (0.2-1.0); Osmolality,Calculated 270.2 MOS/KG (273-304); Potassium 3.8 MMOL/L (3.5-5.1)
[2020-03-14 06:26] LABS: Basophils % 0.2 % (0.0-0.8); Eosinophils # 0.1 10*3/uL (0.0-0.87); Eosinophils % 0.7 % (0.00-10.9); Hematocrit 48.9 VOL% (42.0-52.0); Immature Granulocytes % 1.3 %; Immature Granulocytes Absolute 0.12 #; Lymphocytes # 2.1 10*3/uL (1.4-4.0); Lymphocytes % 22.6 % (21.2-54.2); Mean Corpuscular HGB Conc 31.3 GM/DL (32-36); Mean Corpuscular Volume 86.7 FL (87-102); Monocytes % 11.5 % (1.7-12.7); Neutrophils % 63.7 % (38.7-73.9); Platelet Count 265 T/CUMM (130-400); Red Blood Count 5.64 MC/CUMM (3.8-5.5); Red Cell Distribution Width 13.9 % (9.3-17.3); White Blood Count 9.4 T/CUMM (4-12)
[2020-03-14 06:27] LABS: Hemoglobin 15.3 GM/DL (14.0-18.0)
[2020-03-14] MEDS ORDERED: MAGNESIUM SULF RIDER 2 GM in PREMIX 1 EACH IV ONE (07:15)
[2020-03-14] MEDS ORDERED: POTASSIUM CHLORIDE 20 MEQ TABLET PO ONE (07:15)
[2020-03-14] MEDS: DOCUSATE SODIUM 100 MG CAPSULE PO SCH (08:54)
[2020-03-14] MEDS: CHOLECALCIFEROL 1,000 UNIT TABLET PO SCH (08:55)
[2020-03-14] MEDS: ASCORBIC ACID 500 MG TABLET PO SCH ×2 (08:55→22:27)
[2020-03-14] MEDS: LACTOBACILLUS RHAMNOSUS GG CAPSULE PO SCH ×2 (08:56→22:27)
[2020-03-14] MEDS: OMEGA 3 ACID ETHYL ESTERS 1 GM CAPSULE PO SCH (08:56)
[2020-03-14] MEDS: FAMOTIDINE 20 MG TABLET PO SCH (08:56)
[2020-03-14] MEDS: ZINC GLUCONATE 50 MG TABLET PO SCH (08:57)
[2020-03-14] MEDS: CETIRIZINE 10 MG TABLET PO SCH (08:57)
[2020-03-14] MEDS: ASPIRIN EC 81 MG TABLET PO SCH (08:57)
[2020-03-14] MEDS: INSULIN LISPRO 100 UNIT/ML SUBCUT SCH ×3 (08:58→16:32)
[2020-03-14] MEDS: INSULIN REGULAR 100 UNIT/ML SUBCUT SCH ×4 (08:59→22:28)
[2020-03-14] MEDS: POLYETHYLENE GLYCOL POWDER 17 GM PACK PO SCH (09:00)
[2020-03-14] MEDS: FLUTICASONE/SALMETEROL 500-50 DISKUS 14 DOSE INH SCH ×2 (09:00→22:26)
[2020-03-14] MEDS: LATANOPROST 0.005% OPH SOLN 2.5 ML BOTTLE BOTH EYES SCH ×3 (09:01→22:27)
[2020-03-14] MEDS ORDERED: BISACODYL 5 MG TABLET PO ONE (09:18)
[2020-03-14 11:02] LABS: Bilirubin,Direct 0.26 MG/DL (0.0-0.20); Bilirubin,Indirect 1.5 MG/DL (0.0-1.0); Bilirubin,Total 1.8 MG/DL (0.2-1.0)
[2020-03-14] MEDS: ENOXAPARIN 40 MG/0.4 ML SYRINGE SUBCUT SCH (11:10)
[2020-03-14] MEDS: BRINZOLAMIDE BRIMONIDINE BOTH EYES SCH (22:26)
[2020-03-14] MEDS: ATORVASTATIN 40 MG TABLET PO SCH (22:27)
[2020-03-14] MEDS: INSULIN GLARGINE 100 UNIT/ML SUBCUT SCH (22:27)
[2020-03-15] MEDS: ALBUTEROL INHALER 18 GM INH SCH ×4 (02:06→19:05)
[2020-03-15 06:07] LABS: Basophils % 0.3 % (0.0-0.8); Eosinophils # 0.1 10*3/uL (0.0-0.87); Eosinophils % 0.8 % (0.00-10.9); Hematocrit 46.9 VOL% (42.0-52.0); Hemoglobin 14.6 GM/DL (14.0-18.0); Immature Granulocytes % 1.7 %; Immature Granulocytes Absolute 0.15 #; Lymphocytes # 1.9 10*3/uL (1.4-4.0); Lymphocytes % 21.3 % (21.2-54.2); Mean Corpuscular HGB Conc 31.1 GM/DL (32-36); Mean Corpuscular Volume 87.7 FL (87-102); Mean Platelet Volume 12.5 FL (9.6-12.0); Neutrophils % 64.9 % (38.7-73.9); Platelet Count 251 T/CUMM (130-400); Red Blood Count 5.35 MC/CUMM (3.8-5.5); Red Cell Distribution Width 13.9 % (9.3-17.3)
[2020-03-15 06:18] LABS: Albumin 2.4 G/DL (3.4-5.0); Bilirubin,Total 1.9 MG/DL (0.2-1.0); Calcium 9.6 MG/DL (8.5-10.1); Osmolality,Calculated 272.8 MOS/KG (273-304); Potassium 3.8 MMOL/L (3.5-5.1); Total Protein 6.8 G/DL (6.4-8.3)
[2020-03-15] MEDS: ZINC GLUCONATE 50 MG TABLET PO SCH (10:20)
[2020-03-15] MEDS: CETIRIZINE 10 MG TABLET PO SCH (10:20)
[2020-03-15] MEDS: CHOLECALCIFEROL 1,000 UNIT TABLET PO SCH (10:20)
[2020-03-15] MEDS: OMEGA 3 ACID ETHYL ESTERS 1 GM CAPSULE PO SCH (10:20)
[2020-03-15] MEDS: ASCORBIC ACID 500 MG TABLET PO SCH ×2 (10:20→20:45)
[2020-03-15] MEDS: INSULIN LISPRO 100 UNIT/ML SUBCUT SCH ×3 (10:20→17:16)
[2020-03-15] MEDS: LACTOBACILLUS RHAMNOSUS GG CAPSULE PO SCH ×2 (10:20→20:45)
[2020-03-15] MEDS: FAMOTIDINE 20 MG TABLET PO SCH (10:20)
[2020-03-15] MEDS: ASPIRIN EC 81 MG TABLET PO SCH (10:20)
[2020-03-15] MEDS: LATANOPROST 0.005% OPH SOLN 2.5 ML BOTTLE BOTH EYES SCH ×3 (10:20→20:45)
[2020-03-15] MEDS: DOCUSATE SODIUM 100 MG CAPSULE PO SCH (10:20)
[2020-03-15] MEDS: FLUTICASONE/SALMETEROL 500-50 DISKUS 14 DOSE INH SCH ×2 (10:20→20:45)
[2020-03-15] MEDS: INSULIN REGULAR 100 UNIT/ML SUBCUT SCH ×4 (10:20→20:45)
[2020-03-15] MEDS: POLYETHYLENE GLYCOL POWDER 17 GM PACK PO SCH (10:20)
[2020-03-15] MEDS: ENOXAPARIN 40 MG/0.4 ML SYRINGE SUBCUT SCH (11:19)
[2020-03-15] MEDS: BRINZOLAMIDE BRIMONIDINE BOTH EYES SCH (20:40)
[2020-03-15] MEDS: INSULIN GLARGINE 100 UNIT/ML SUBCUT SCH (20:45)
[2020-03-15] MEDS: ATORVASTATIN 40 MG TABLET PO SCH (20:45)
[2020-03-16] MEDS: ALBUTEROL INHALER 18 GM INH SCH ×4 (00:05→18:10)
[2020-03-16 05:41] LABS: Calcium 9.8 MG/DL (8.5-10.1); Osmolality,Calculated 267.7 MOS/KG (273-304); Potassium 3.9 MMOL/L (3.5-5.1)
[2020-03-16 06:01] LABS: Basophils % 0.4 % (0.0-0.8); Eosinophils # 0.1 10*3/uL (0.0-0.87); Eosinophils % 0.6 % (0.00-10.9); Hematocrit 44.9 VOL% (42.0-52.0); Immature Granulocytes % 1.1 %; Immature Granulocytes Absolute 0.11 #; Lymphocytes # 1.5 10*3/uL (1.4-4.0); Lymphocytes % 14.7 % (21.2-54.2); Mean Corpuscular HGB Conc 31.6 GM/DL (32-36); Mean Corpuscular Volume 87.9 FL (87-102); Monocytes % 13.7 % (1.7-12.7); Neutrophils % 69.5 % (38.7-73.9); Platelet Count 240 T/CUMM (130-400); Red Blood Count 5.11 MC/CUMM (3.8-5.5); Red Cell Distribution Width 13.9 % (9.3-17.3); White Blood Count 10.1 T/CUMM (4-12)
[2020-03-16 06:02] LABS: Hemoglobin 14.2 GM/DL (14.0-18.0)
[2020-03-16] MEDS: INSULIN REGULAR 100 UNIT/ML SUBCUT SCH ×4 (07:53→20:50)
[2020-03-16] MEDS: ZINC GLUCONATE 50 MG TABLET PO SCH (09:56)
[2020-03-16] MEDS: CHOLECALCIFEROL 1,000 UNIT TABLET PO SCH (09:56)
[2020-03-16] MEDS: ASCORBIC ACID 500 MG TABLET PO SCH ×2 (09:56→20:50)
[2020-03-16] MEDS: LATANOPROST 0.005% OPH SOLN 2.5 ML BOTTLE BOTH EYES SCH ×3 (09:56→20:50)
[2020-03-16] MEDS: DOCUSATE SODIUM 100 MG CAPSULE PO SCH (09:56)
[2020-03-16] MEDS: OMEGA 3 ACID ETHYL ESTERS 1 GM CAPSULE PO SCH (09:56)
[2020-03-16] MEDS: LACTOBACILLUS RHAMNOSUS GG CAPSULE PO SCH ×2 (09:56→20:50)
[2020-03-16] MEDS: CETIRIZINE 10 MG TABLET PO SCH (09:56)
[2020-03-16] MEDS: FLUTICASONE/SALMETEROL 500-50 DISKUS 14 DOSE INH SCH ×2 (09:56→19:15)
[2020-03-16] MEDS: INSULIN LISPRO 100 UNIT/ML SUBCUT SCH ×3 (09:56→16:50)
[2020-03-16] MEDS: FAMOTIDINE 20 MG TABLET PO SCH (09:56)
[2020-03-16] MEDS: ASPIRIN EC 81 MG TABLET PO SCH (09:56)
[2020-03-16] MEDS: POLYETHYLENE GLYCOL POWDER 17 GM PACK PO SCH (09:56)
[2020-03-16] MEDS: ENOXAPARIN 40 MG/0.4 ML SYRINGE SUBCUT SCH (11:54)
[2020-03-16] MEDS: ATORVASTATIN 40 MG TABLET PO SCH (20:50)
[2020-03-16] MEDS: BRINZOLAMIDE BRIMONIDINE BOTH EYES SCH (20:50)
[2020-03-16] MEDS: INSULIN GLARGINE 100 UNIT/ML SUBCUT SCH (20:50)
[2020-03-16 23:11] LABS: Specimen Source THROAT
[2020-03-17] MEDS: ALBUTEROL INHALER 18 GM INH SCH ×4 (01:40→21:13)
[2020-03-17 06:13] LABS: Basophils % 0.2 % (0.0-0.8); Eosinophils # 0.1 10*3/uL (0.0-0.87); Eosinophils % 0.9 % (0.00-10.9); Hemoglobin 13.8 GM/DL (14.0-18.0); Immature Granulocytes % 1.3 %; Immature Granulocytes Absolute 0.11 #; Lymphocytes # 1.7 10*3/uL (1.4-4.0); Lymphocytes % 19.8 % (21.2-54.2); Mean Corpuscular HGB Conc 30.7 GM/DL (32-36); Mean Corpuscular Volume 89.6 FL (87-102); Mean Platelet Volume 12.3 FL (9.6-12.0); Monocytes % 15.2 % (1.7-12.7); Neutrophils % 62.6 % (38.7-73.9); Platelet Count 201 T/CUMM (130-400); Red Blood Count 5.02 MC/CUMM (3.8-5.5); Red Cell Distribution Width 13.9 % (9.3-17.3); White Blood Count 8.5 T/CUMM (4-12)
[2020-03-17 06:28] LABS: Calcium 9.9 MG/DL (8.5-10.1); Osmolality,Calculated 265.8 MOS/KG (273-304); Potassium 3.9 MMOL/L (3.5-5.1)
[2020-03-17] MEDS: INSULIN LISPRO 100 UNIT/ML SUBCUT SCH ×3 (09:55→15:36)
[2020-03-17] MEDS: INSULIN REGULAR 100 UNIT/ML SUBCUT SCH ×4 (09:55→21:13)
[2020-03-17] MEDS: FLUTICASONE/SALMETEROL 500-50 DISKUS 14 DOSE INH SCH ×2 (09:56→21:13)
[2020-03-17] MEDS: DOCUSATE SODIUM 100 MG CAPSULE PO SCH (09:56)
[2020-03-17] MEDS: OMEGA 3 ACID ETHYL ESTERS 1 GM CAPSULE PO SCH (09:56)
[2020-03-17] MEDS: ASCORBIC ACID 500 MG TABLET PO SCH ×2 (09:56→21:12)
[2020-03-17] MEDS: FAMOTIDINE 20 MG TABLET PO SCH (09:56)
[2020-03-17] MEDS: CETIRIZINE 10 MG TABLET PO SCH (09:56)
[2020-03-17] MEDS: LATANOPROST 0.005% OPH SOLN 2.5 ML BOTTLE BOTH EYES SCH ×3 (09:56→21:13)
[2020-03-17] MEDS: CHOLECALCIFEROL 1,000 UNIT TABLET PO SCH (09:56)
[2020-03-17] MEDS: POLYETHYLENE GLYCOL POWDER 17 GM PACK PO SCH (09:56)
[2020-03-17] MEDS: ASPIRIN EC 81 MG TABLET PO SCH (09:56)
[2020-03-17] MEDS: LACTOBACILLUS RHAMNOSUS GG CAPSULE PO SCH ×2 (09:56→21:12)
[2020-03-17] MEDS: ZINC GLUCONATE 50 MG TABLET PO SCH (09:57)
[2020-03-17] MEDS: ENOXAPARIN 40 MG/0.4 ML SYRINGE SUBCUT SCH (10:30)
[2020-03-17] MEDS: ATORVASTATIN 40 MG TABLET PO SCH (21:12)
[2020-03-17] MEDS: INSULIN GLARGINE 100 UNIT/ML SUBCUT SCH (21:13)
[2020-03-17] MEDS: BRINZOLAMIDE BRIMONIDINE BOTH EYES SCH (22:14)
[2020-03-18] MEDS: ALBUTEROL INHALER 18 GM INH SCH ×4 (02:44→21:36)
[2020-03-18 05:55] LABS: Calcium 10.1 MG/DL (8.5-10.1); Osmolality,Calculated 260.8 MOS/KG (273-304); Potassium 4.6 MMOL/L (3.5-5.1)
[2020-03-18 06:03] LABS: Basophils % 0.5 % (0.0-0.8); Eosinophils # 0.1 10*3/uL (0.0-0.87); Eosinophils % 1.1 % (0.00-10.9); Hemoglobin 13.9 GM/DL (14.0-18.0); Immature Granulocytes % 1.3 %; Immature Granulocytes Absolute 0.11 #; Lymphocytes # 1.5 10*3/uL (1.4-4.0); Lymphocytes % 17.2 % (21.2-54.2); Mean Corpuscular HGB Conc 30.2 GM/DL (32-36); Mean Corpuscular Volume 91.1 FL (87-102); Mean Platelet Volume 12.8 FL (9.6-12.0); Monocytes % 17.7 % (1.7-12.7); Neutrophils % 62.2 % (38.7-73.9); Platelet Count 164 T/CUMM (130-400); Red Blood Count 5.05 MC/CUMM (3.8-5.5); Red Cell Distribution Width 14.1 % (9.3-17.3); White Blood Count 8.4 T/CUMM (4-12)
[2020-03-18 06:08] LABS: Band Neutrophils 1 % (0-10); Eosinophils 1 % (0-10); Hypochromasia 1+; Lymphocytes 14 % (20-55); Microcytosis 1+; Segmented Neutrophils 64 % (50-85); Total Cells Counted 100
[2020-03-18 06:09] LABS: Ovalocytes Slight; Platelet Estimate Adequate
[2020-03-18] MEDS: DOCUSATE SODIUM 100 MG CAPSULE PO SCH (09:15)
[2020-03-18] MEDS: ZINC GLUCONATE 50 MG TABLET PO SCH (09:15)
[2020-03-18] MEDS: CHOLECALCIFEROL 1,000 UNIT TABLET PO SCH (09:15)
[2020-03-18] MEDS: INSULIN REGULAR 100 UNIT/ML SUBCUT SCH ×4 (09:15→22:08)
[2020-03-18] MEDS: LACTOBACILLUS RHAMNOSUS GG CAPSULE PO SCH ×2 (09:15→21:36)
[2020-03-18] MEDS: OMEGA 3 ACID ETHYL ESTERS 1 GM CAPSULE PO SCH (09:15)
[2020-03-18] MEDS: CETIRIZINE 10 MG TABLET PO SCH (09:15)
[2020-03-18] MEDS: INSULIN LISPRO 100 UNIT/ML SUBCUT SCH ×3 (09:15→17:39)
[2020-03-18] MEDS: ASPIRIN EC 81 MG TABLET PO SCH (09:15)
[2020-03-18] MEDS: FAMOTIDINE 20 MG TABLET PO SCH (09:15)
[2020-03-18] MEDS: POLYETHYLENE GLYCOL POWDER 17 GM PACK PO SCH (09:15)
[2020-03-18] MEDS: ASCORBIC ACID 500 MG TABLET PO SCH ×2 (09:15→21:37)
[2020-03-18] MEDS: FLUTICASONE/SALMETEROL 500-50 DISKUS 14 DOSE INH SCH ×2 (09:15→21:36)
[2020-03-18] MEDS: LATANOPROST 0.005% OPH SOLN 2.5 ML BOTTLE BOTH EYES SCH ×3 (09:15→21:37)
[2020-03-18] MEDS: ENOXAPARIN 40 MG/0.4 ML SYRINGE SUBCUT SCH (11:06)
[2020-03-18] MEDS: BRINZOLAMIDE BRIMONIDINE BOTH EYES SCH (21:36)
[2020-03-18] MEDS: ATORVASTATIN 40 MG TABLET PO SCH (21:37)
[2020-03-18] MEDS: INSULIN GLARGINE 100 UNIT/ML SUBCUT SCH (22:07)
[2020-03-19] MEDS: ACETAMINOPHEN 325 MG TABLET PO PRN ×2 (01:49→17:08)
[2020-03-19] MEDS: ALBUTEROL INHALER 18 GM INH SCH ×4 (01:49→19:11)
[2020-03-19 06:58] LABS: Osmolality,Calculated 264.5 MOS/KG (273-304); Potassium 3.8 MMOL/L (3.5-5.1)
[2020-03-19 07:10] LABS: Basophils % 0.4 % (0.0-0.8); Eosinophils # 0.1 10*3/uL (0.0-0.87); Hematocrit 41.3 VOL% (42.0-52.0); Hemoglobin 12.5 GM/DL (14.0-18.0); Immature Granulocytes % 1.1 %; Immature Granulocytes Absolute 0.09 #; Lymphocytes # 1.8 10*3/uL (1.4-4.0); Lymphocytes % 22.6 % (21.2-54.2); Mean Corpuscular HGB Conc 30.3 GM/DL (32-36); Mean Corpuscular Volume 89.2 FL (87-102); Monocytes % 17.6 % (1.7-12.7); Neutrophils % 57.3 % (38.7-73.9); Platelet Count 164 T/CUMM (130-400); Red Blood Count 4.63 MC/CUMM (3.8-5.5); Red Cell Distribution Width 13.9 % (9.3-17.3); White Blood Count 8.1 T/CUMM (4-12)
[2020-03-19 07:40] LABS: Eosinophils 1 % (0-10); Lymphocytes 20 % (20-55); Platelet Estimate Adequate; Segmented Neutrophils 60 % (50-85); Total Cells Counted 100
[2020-03-19 07:41] LABS: Hypochromasia 1+; Microcytosis 1+; Ovalocytes Slight
[2020-03-19] MEDS: POLYETHYLENE GLYCOL POWDER 17 GM PACK PO SCH (10:01)
[2020-03-19] MEDS: DOCUSATE SODIUM 100 MG CAPSULE PO SCH (10:03)
[2020-03-19] MEDS: ASPIRIN EC 81 MG TABLET PO SCH (10:03)
[2020-03-19] MEDS: CETIRIZINE 10 MG TABLET PO SCH (10:03)
[2020-03-19] MEDS: ZINC GLUCONATE 50 MG TABLET PO SCH (10:03)
[2020-03-19] MEDS: CHOLECALCIFEROL 1,000 UNIT TABLET PO SCH (10:03)
[2020-03-19] MEDS: ASCORBIC ACID 500 MG TABLET PO SCH ×2 (10:04→21:45)
[2020-03-19] MEDS: FAMOTIDINE 20 MG TABLET PO SCH (10:04)
[2020-03-19] MEDS: LACTOBACILLUS RHAMNOSUS GG CAPSULE PO SCH ×2 (10:04→21:45)
[2020-03-19] MEDS: OMEGA 3 ACID ETHYL ESTERS 1 GM CAPSULE PO SCH (10:06)
[2020-03-19] MEDS: FLUTICASONE/SALMETEROL 500-50 DISKUS 14 DOSE INH SCH ×2 (10:16→21:45)
[2020-03-19] MEDS: INSULIN REGULAR 100 UNIT/ML SUBCUT SCH ×4 (10:16→21:45)
[2020-03-19] MEDS: LATANOPROST 0.005% OPH SOLN 2.5 ML BOTTLE BOTH EYES SCH ×3 (10:17→21:45)
[2020-03-19] MEDS: INSULIN LISPRO 100 UNIT/ML SUBCUT SCH ×3 (10:17→17:10)
[2020-03-19] MEDS: ENOXAPARIN 40 MG/0.4 ML SYRINGE SUBCUT SCH (13:10)
[2020-03-19] MEDS: ATORVASTATIN 40 MG TABLET PO SCH (21:45)
[2020-03-19] MEDS: BRINZOLAMIDE BRIMONIDINE BOTH EYES SCH (21:45)
[2020-03-19] MEDS: INSULIN GLARGINE 100 UNIT/ML SUBCUT SCH (21:45)
[2020-03-20] MEDS: ALBUTEROL INHALER 18 GM INH SCH ×4 (01:15→19:25)
[2020-03-20 07:07] LABS: Basophils % 0.2 % (0.0-0.8); Eosinophils # 0.1 10*3/uL (0.0-0.87); Eosinophils % 1.8 % (0.00-10.9); Hematocrit 38.9 VOL% (42.0-52.0); Immature Granulocytes % 0.8 %; Immature Granulocytes Absolute 0.04 #; Lymphocytes # 1.3 10*3/uL (1.4-4.0); Lymphocytes % 24.7 % (21.2-54.2); Mean Corpuscular HGB Conc 30.8 GM/DL (32-36); Mean Corpuscular Volume 89.2 FL (87-102); Monocytes % 15.8 % (1.7-12.7); Neutrophils % 56.7 % (38.7-73.9); Platelet Count 152 T/CUMM (130-400); Red Blood Count 4.36 MC/CUMM (3.8-5.5); Red Cell Distribution Width 13.7 % (9.3-17.3); White Blood Count 5.1 T/CUMM (4-12)
[2020-03-20] MEDS: CETIRIZINE 10 MG TABLET PO SCH (08:12)
[2020-03-20] MEDS: ZINC GLUCONATE 50 MG TABLET PO SCH (08:12)
[2020-03-20] MEDS: ASPIRIN EC 81 MG TABLET PO SCH (08:12)
[2020-03-20] MEDS: DOCUSATE SODIUM 100 MG CAPSULE PO SCH (08:12)
[2020-03-20] MEDS: CHOLECALCIFEROL 1,000 UNIT TABLET PO SCH (08:13)
[2020-03-20] MEDS: FAMOTIDINE 20 MG TABLET PO SCH (08:13)
[2020-03-20] MEDS: ASCORBIC ACID 500 MG TABLET PO SCH ×2 (08:13→20:49)
[2020-03-20] MEDS: INSULIN REGULAR 100 UNIT/ML SUBCUT SCH ×4 (08:13→20:54)
[2020-03-20] MEDS: LACTOBACILLUS RHAMNOSUS GG CAPSULE PO SCH ×2 (08:13→20:49)
[2020-03-20] MEDS: OMEGA 3 ACID ETHYL ESTERS 1 GM CAPSULE PO SCH (08:13)
[2020-03-20] MEDS: INSULIN LISPRO 100 UNIT/ML SUBCUT SCH ×3 (08:14→16:00)
[2020-03-20] MEDS: POLYETHYLENE GLYCOL POWDER 17 GM PACK PO SCH (08:14)
[2020-03-20] MEDS: FLUTICASONE/SALMETEROL 500-50 DISKUS 14 DOSE INH SCH ×2 (08:14→20:50)
[2020-03-20] MEDS: LATANOPROST 0.005% OPH SOLN 2.5 ML BOTTLE BOTH EYES SCH ×3 (08:15→20:50)
[2020-03-20 08:23] LABS: Band Neutrophils 2 % (0-10); Eosinophils 2 % (0-10); Lymphocytes 23 % (20-55); Segmented Neutrophils 56 % (50-85); Total Cells Counted 100
[2020-03-20 08:24] LABS: Platelet Estimate Adequate
[2020-03-20 08:34] LABS: Calcium 9.7 MG/DL (8.5-10.1); Osmolality,Calculated 272.1 MOS/KG (273-304); Potassium 3.9 MMOL/L (3.5-5.1)
[2020-03-20] MEDS: ENOXAPARIN 40 MG/0.4 ML SYRINGE SUBCUT SCH (12:05)
[2020-03-20] MEDS: INSULIN GLARGINE 100 UNIT/ML SUBCUT SCH (20:49)
[2020-03-20] MEDS: ATORVASTATIN 40 MG TABLET PO SCH (20:49)
[2020-03-20] MEDS: BRINZOLAMIDE BRIMONIDINE BOTH EYES SCH (20:50)
[2020-03-21] MEDS: ALBUTEROL INHALER 18 GM INH SCH ×4 (01:15→20:38)
[2020-03-21 06:38] LABS: Basophils % 0.4 % (0.0-0.8); Eosinophils # 0.1 10*3/uL (0.0-0.87); Eosinophils % 1.9 % (0.00-10.9); Hematocrit 36.8 VOL% (42.0-52.0); Hemoglobin 11.7 GM/DL (14.0-18.0); Immature Granulocytes % 0.8 %; Immature Granulocytes Absolute 0.04 #; Lymphocytes # 1.3 10*3/uL (1.4-4.0); Lymphocytes % 25.1 % (21.2-54.2); Mean Corpuscular HGB Conc 31.8 GM/DL (32-36); Mean Platelet Volume 12.4 FL (9.6-12.0); Monocytes % 14.8 % (1.7-12.7); Platelet Count 149 T/CUMM (130-400); Red Blood Count 4.18 MC/CUMM (3.8-5.5); Red Cell Distribution Width 13.8 % (9.3-17.3); White Blood Count 5.2 T/CUMM (4-12)
[2020-03-21 06:55] LABS: Calcium 9.8 MG/DL (8.5-10.1); Potassium 3.7 MMOL/L (3.5-5.1)
[2020-03-21] MEDS: CHOLECALCIFEROL 1,000 UNIT TABLET PO SCH (09:01)
[2020-03-21] MEDS: ZINC GLUCONATE 50 MG TABLET PO SCH (09:01)
[2020-03-21] MEDS: ASPIRIN EC 81 MG TABLET PO SCH (09:01)
[2020-03-21] MEDS: DOCUSATE SODIUM 100 MG CAPSULE PO SCH (09:01)
[2020-03-21] MEDS: OMEGA 3 ACID ETHYL ESTERS 1 GM CAPSULE PO SCH (09:01)
[2020-03-21] MEDS: FAMOTIDINE 20 MG TABLET PO SCH (09:01)
[2020-03-21] MEDS: CETIRIZINE 10 MG TABLET PO SCH (09:01)
[2020-03-21] MEDS: ASCORBIC ACID 500 MG TABLET PO SCH ×2 (09:02→20:34)
[2020-03-21] MEDS: LACTOBACILLUS RHAMNOSUS GG CAPSULE PO SCH ×2 (09:02→20:34)
[2020-03-21] MEDS: FLUTICASONE/SALMETEROL 500-50 DISKUS 14 DOSE INH SCH ×2 (09:02→20:37)
[2020-03-21] MEDS: POLYETHYLENE GLYCOL POWDER 17 GM PACK PO SCH (09:05)
[2020-03-21] MEDS: LATANOPROST 0.005% OPH SOLN 2.5 ML BOTTLE BOTH EYES SCH ×3 (09:07→20:37)
[2020-03-21] MEDS: INSULIN REGULAR 100 UNIT/ML SUBCUT SCH ×4 (09:08→20:35)
[2020-03-21] MEDS: INSULIN LISPRO 100 UNIT/ML SUBCUT SCH ×3 (09:08→16:39)
[2020-03-21] MEDS ORDERED: MAGNESIUM SULF RIDER 2 GM in PREMIX 1 EACH IV ONE (11:57)
[2020-03-21] MEDS: ENOXAPARIN 40 MG/0.4 ML SYRINGE SUBCUT SCH (13:22)
[2020-03-21] MEDS: ATORVASTATIN 40 MG TABLET PO SCH (20:34)
[2020-03-21] MEDS: INSULIN GLARGINE 100 UNIT/ML SUBCUT SCH (20:34)
[2020-03-21] MEDS: BRINZOLAMIDE BRIMONIDINE BOTH EYES SCH (20:43)
[2020-03-22] MEDS: ALBUTEROL INHALER 18 GM INH SCH ×2 (03:52→06:23)
[2020-03-22 06:13] LABS: Albumin 1.9 G/DL (3.4-5.0); Bilirubin,Total 0.4 MG/DL (0.2-1.0); Calcium 9.3 MG/DL (8.5-10.1); Osmolality,Calculated 275.5 MOS/KG (273-304); Potassium 3.7 MMOL/L (3.5-5.1); Total Protein 6.6 G/DL (6.4-8.3)
[2020-03-22] MEDS: INSULIN LISPRO 100 UNIT/ML SUBCUT SCH ×2 (09:26→12:58)
[2020-03-22] MEDS: DOCUSATE SODIUM 100 MG CAPSULE PO SCH (09:27)
[2020-03-22] MEDS: CHOLECALCIFEROL 1,000 UNIT TABLET PO SCH (09:27)
[2020-03-22] MEDS: CETIRIZINE 10 MG TABLET PO SCH (09:27)
[2020-03-22] MEDS: ASCORBIC ACID 500 MG TABLET PO SCH (09:27)
[2020-03-22] MEDS: ZINC GLUCONATE 50 MG TABLET PO SCH (09:27)
[2020-03-22] MEDS: OMEGA 3 ACID ETHYL ESTERS 1 GM CAPSULE PO SCH (09:27)
[2020-03-22] MEDS: FAMOTIDINE 20 MG TABLET PO SCH (09:27)
[2020-03-22] MEDS: LACTOBACILLUS RHAMNOSUS GG CAPSULE PO SCH (09:27)
[2020-03-22] MEDS: ASPIRIN EC 81 MG TABLET PO SCH (09:27)
[2020-03-22] MEDS: FLUTICASONE/SALMETEROL 500-50 DISKUS 14 DOSE INH SCH (09:28)
[2020-03-22] MEDS ORDERED: INSULIN LISPRO 100 UNIT/ML SUBCUT SCH (11:30)
[2020-03-22] MEDS: LATANOPROST 0.005% OPH SOLN 2.5 ML BOTTLE BOTH EYES SCH ×2 (11:38→17:13)
[2020-03-22] MEDS: POLYETHYLENE GLYCOL POWDER 17 GM PACK PO SCH (11:38)
[2020-03-22] MEDS ORDERED: ALBUTEROL 2.5 MG/3 ML NEB RESP TX SCH (13:00)
[2020-03-22 16:34] VITALS: BP 115/59
== END 2020-03-22 17:15 | DRG 177 ==
LOC: EDUNIT# → EDBD → N.EDINP 09:12 → N.ED 09:12 → N.2E 03-03 16:11 → SUATTDRO 03-04 10:55 → N.5E 03-20 00:17
PROVIDERS: ADMIT Internal Medicine; ATTEND Internal Medicine

== ENCOUNTER 2020-04-08 17:01 | Observation (INO) ==
[2020-04-08 17:31] LABS: Basophils % 0.5 % (0.0-0.8); Eosinophils # 0.1 10*3/uL (0.0-0.87); Eosinophils % 1.6 % (0.00-10.9); Hematocrit 43.8 VOL% (42.0-52.0); Hemoglobin 13.3 GM/DL (14.0-18.0); Immature Granulocytes % 0.8 %; Immature Granulocytes Absolute 0.06 #; Lymphocytes # 3.4 10*3/uL (1.4-4.0); Lymphocytes % 42.2 % (21.2-54.2); Mean Corpuscular HGB Conc 30.4 GM/DL (32-36); Mean Corpuscular Volume 89.4 FL (87-102); Mean Platelet Volume 12.4 FL (9.6-12.0); Monocytes % 12.1 % (1.7-12.7); NRBC # 0.02 10*3/uL; Neutrophils % 42.8 % (38.7-73.9); Platelet Count 221 T/CUMM (130-400)
[2020-04-08 17:51] LABS: Albumin 3.4 G/DL (3.4-5.0); Bilirubin,Total 0.6 MG/DL (0.2-1.0); Calcium 9.6 MG/DL (8.5-10.1); Osmolality,Calculated 281.7 MOS/KG (273-304); Total Protein 7.8 G/DL (6.4-8.3)
[2020-04-08] MEDS ORDERED: ACETAMINOPHEN 325 MG TABLET PO PRN (19:04)
[2020-04-08] MEDS ORDERED: MORPHINE 4 MG/1 ML VIAL IV PRN (19:04)
[2020-04-08] MEDS ORDERED: diphenhydrAMINE CAP 25 MG CAPSULE PO PRN (19:04)
[2020-04-08] MEDS ORDERED: hydrALAZINE 20 MG/1 ML VIAL IV PRN (19:04)
[2020-04-08] MEDS ORDERED: DEXTROSE 50% 25 GM/50 ML VIAL IV PRN ×2 (19:04)
[2020-04-08] MEDS ORDERED: GLUCAGON 1 MG VIAL IM PRN ×2 (19:04)
[2020-04-08] MEDS ORDERED: guaiFENesin/DM ER 600-30 MG TABLET PO PRN (19:04)
[2020-04-08] MEDS ORDERED: NICOTINE 21 MG/24 HR PATCH TRANSDERM PRN (19:04)
[2020-04-08] MEDS ORDERED: ONDANSETRON 4 MG/2 ML VIAL IV PRN (19:04)
[2020-04-08] MEDS: INSULIN LISPRO 100 UNIT/ML SUBCUT SCH (21:44)
[2020-04-08] MEDS: ENOXAPARIN 40 MG/0.4 ML SYRINGE SUBCUT SCH (21:44)
[2020-04-08] MEDS: methylPREDNISolone SOD SUC 125 MG/2 ML VIAL IV SCH (21:45)
[2020-04-08] MEDS: ALBUTEROL/IPRATROPIUM 3 ML NEB RESP TX SCH (23:47)
[2020-04-09] MEDS: methylPREDNISolone SOD SUC 125 MG/2 ML VIAL IV SCH ×3 (03:13→22:00)
[2020-04-09] MEDS: ALBUTEROL/IPRATROPIUM 3 ML NEB RESP TX SCH ×5 (03:51→20:02)
[2020-04-09 07:07] LABS: Potassium 4.3 MMOL/L (3.5-5.1)
[2020-04-09] MEDS: ASPIRIN EC 81 MG TABLET PO SCH (09:48)
[2020-04-09] MEDS: PANTOPRAZOLE 40 MG TABLET PO SCH (09:48)
[2020-04-09] MEDS: LOSARTAN 50 MG TABLET PO SCH (09:48)
[2020-04-09] MEDS: INSULIN LISPRO 100 UNIT/ML SUBCUT SCH ×5 (09:48→22:05)
[2020-04-09] MEDS: hydroCHLOROthiazide 25 MG TABLET PO SCH (09:49)
[2020-04-09] MEDS: BRINZOLAMIDE BRIMONIDINE BOTH EYES SCH ×3 (09:52→21:55)
[2020-04-09] MEDS: [UNRECOGNIZED DRUG - OTHER] BOTH EYES SCH ×3 (09:52→21:55)
[2020-04-09] MEDS: LATANOPROST 0.005% OPH SOLN 2.5 ML BOTTLE BOTH EYES SCH ×3 (09:52→21:39)
[2020-04-09] MEDS: LEVOFLOXACIN INJ 750 MG in PREMIX 1 EACH IV SCH (09:52)
[2020-04-09] MEDS ORDERED: metFORMIN 500 MG TABLET PO SCH (17:00)
[2020-04-09] MEDS ORDERED: ATORVASTATIN 40 MG TABLET PO SCH (21:00)
[2020-04-09] MEDS: ENOXAPARIN 40 MG/0.4 ML SYRINGE SUBCUT SCH (21:36)
[2020-04-10] MEDS: ALBUTEROL/IPRATROPIUM 3 ML NEB RESP TX SCH ×4 (00:46→14:30)
[2020-04-10] MEDS: methylPREDNISolone SOD SUC 125 MG/2 ML VIAL IV SCH ×2 (06:25→14:14)
[2020-04-10 06:27] LABS: Osmolality,Calculated 283.1 MOS/KG (273-304); Potassium 3.9 MMOL/L (3.5-5.1)
[2020-04-10 06:43] LABS: Basophils % 0.1 % (0.0-0.8); Hematocrit 41.5 VOL% (42.0-52.0); Hemoglobin 12.7 GM/DL (14.0-18.0); Immature Granulocytes % 0.8 %; Immature Granulocytes Absolute 0.09 #; Lymphocytes # 1.9 10*3/uL (1.4-4.0); Lymphocytes % 16.7 % (21.2-54.2); Mean Corpuscular HGB Conc 30.6 GM/DL (32-36); Mean Platelet Volume 13.4 FL (9.6-12.0); Monocytes % 9.3 % (1.7-12.7); NRBC # 0.02 10*3/uL; Neutrophils % 73.1 % (38.7-73.9); Platelet Count 178 T/CUMM (130-400); Red Blood Count 4.61 MC/CUMM (3.8-5.5); White Blood Count 11.2 T/CUMM (4-12)
[2020-04-10] MEDS ORDERED: metFORMIN 500 MG TABLET PO SCH (08:00)
[2020-04-10] MEDS ORDERED: PANTOPRAZOLE 40 MG TABLET PO SCH (09:00)
[2020-04-10] MEDS ORDERED: INSULIN GLARGINE 100 UNIT/ML SUBCUT SCH (09:00)
[2020-04-10] MEDS: LEVOFLOXACIN INJ 750 MG in PREMIX 1 EACH IV SCH (09:33)
[2020-04-10] MEDS: INSULIN LISPRO 100 UNIT/ML SUBCUT SCH ×4 (09:37→11:54)
[2020-04-10] MEDS: hydroCHLOROthiazide 25 MG TABLET PO SCH (09:38)
[2020-04-10] MEDS: LOSARTAN 50 MG TABLET PO SCH (09:39)
[2020-04-10] MEDS: PANTOPRAZOLE 40 MG TABLET PO SCH (09:40)
[2020-04-10] MEDS: [UNRECOGNIZED DRUG - OTHER] BOTH EYES SCH ×2 (09:40→14:14)
[2020-04-10] MEDS: ASPIRIN EC 81 MG TABLET PO SCH (09:40)
[2020-04-10] MEDS: BRINZOLAMIDE BRIMONIDINE BOTH EYES SCH ×2 (09:40→14:14)
[2020-04-10] MEDS: LATANOPROST 0.005% OPH SOLN 2.5 ML BOTTLE BOTH EYES SCH ×2 (09:42→16:04)
[2020-04-10 12:34] VITALS: BP 126/78
== END 2020-04-10 17:00 | disposition home or self-care (01) ==
LOC: EDUNIT# → EDBD → N.ED 17:01 → N.EDINP 17:01 → N.5E 22:33
PROVIDERS: ADMIT Internal Medicine; ATTEND Internal Medicine

== ENCOUNTER 2022-02-22 15:44 | Inpatient (IN) ==
[2022-02-22] MEDS ORDERED: HYDROmorphone 1 MG/1 ML SYRINGE IV STA (20:21)
[2022-02-22] MEDS ORDERED: ONDANSETRON 4 MG/2 ML VIAL IV STA (20:21)
[2022-02-22] MEDS ORDERED: SODIUM CHLORIDE 0.9% 500 ML IV STA ×2 (20:21→22:02)
[2022-02-22] MEDS ORDERED: PANTOPRAZOLE 40 MG VIAL IV STA (20:21)
[2022-02-22 20:59] LABS: Basophils % 0.4 % (0.0-0.8); Eosinophils # 0.2 10*3/uL (0.0-0.87); Eosinophils % 2.6 % (0.00-10.9); Hemoglobin 7.1 GM/DL (14.0-18.0); Immature Granulocytes % 0.4 %; Immature Granulocytes Absolute 0.03 #; Lymphocytes # 2.3 10*3/uL (1.4-4.0); Lymphocytes % 30.8 % (21.2-54.2); Mean Corpuscular HGB Conc 28.4 GM/DL (32-36); Mean Corpuscular Volume 79.1 FL (87-102); Mean Platelet Volume 10.7 FL (9.6-12.0); Monocytes # 0.9 10*3/uL (0.11-0.8); Monocytes % 12.8 % (1.7-12.7); Platelet Count 373 T/CUMM (130-400); Red Blood Count 3.16 MC/CUMM (3.8-5.5); Red Cell Distribution Width 16.7 % (9.3-17.3); White Blood Count 7.3 T/CUMM (4-12)
[2022-02-22 21:09] LABS: INR 0.9; PT Patient Result 9.8 SECS (10.1-12.1)
[2022-02-22 21:26] LABS: Alanine Aminotransferase 19 U/L (16-61); Alkaline Phosphatase 116 U/L (45-117); Amylase 68 U/L (25-115); Aspartate Amino Transferase 11 U/L (0-37); Blood Urea Nitrogen 16 MG/DL (7-18); Calcium 9.2 MG/DL (8.5-10.1); Carbon Dioxide 29 MMOL/L (21-32); Chloride 101 MMOL/L (98-107); Glucose 140 MG/DL (74-106); Potassium 3.9 MMOL/L (3.5-5.1); Sodium 136 MMOL/L (136-145); Total Protein 6.3 G/DL (6.4-8.2)
[2022-02-22 22:31] LABS: RBC,Urine 1 /HPF (0-4)
[2022-02-22 22:32] LABS: Bilirubin,Urine Negative (Negative); Blood, Urine Negative (Negative); Glucose,Urine (UA) >=1000 mg/dL (Negative); Ketones,Urine Negative (Negative); Nitrite,Urine Negative (Negative); Protein,Urine Negative (Negative); Urine Appearance Clear (Clear); Urine Color Yellow (Yellow); Urine Specific Gravity 1.015 (1.001-1.035); Urine Urobilinogen 0.2 eU/dL (<2.0); Urine pH 5.5 (4.5-8.0)
[2022-02-23] MEDS ORDERED: ACETAMINOPHEN 325 MG TABLET PO PRN (01:26)
[2022-02-23] MEDS ORDERED: ZALEPLON 5 MG CAPSULE PO PRN (01:26)
[2022-02-23] MEDS ORDERED: guaiFENesin/DM ER 600-30 MG TABLET PO PRN (01:26)
[2022-02-23] MEDS ORDERED: diphenhydrAMINE CAP 25 MG CAPSULE PO PRN (01:26)
[2022-02-23] MEDS ORDERED: ONDANSETRON 4 MG/2 ML VIAL IV PRN (01:26)
[2022-02-23] MEDS ORDERED: hydrALAZINE 20 MG/1 ML VIAL IV PRN (01:26)
[2022-02-23] MEDS ORDERED: NICOTINE 21 MG/24 HR PATCH TRANSDERM PRN (01:26)
[2022-02-23] MEDS ORDERED: SODIUM CHLORIDE 0.9% 1,000 ML IV PRN (01:29)
[2022-02-23] MEDS ORDERED: SODIUM CHLORIDE 0.9% 1,000 ML IV SCH (01:45)
[2022-02-23] MEDS ORDERED: DEXTROSE 50% 25 GM/50 ML VIAL IV STA ×2 (01:47→09:04)
[2022-02-23] MEDS ORDERED: DEXTROSE 50% 25 GM/50 ML SYRINGE IV ONE ×2 (01:47→09:05)
[2022-02-23] MEDS ORDERED: DEXTROSE 50% 25 GM/50 ML SYRINGE IV STA (01:50)
[2022-02-23] MEDS: PANTOPRAZOLE INJ 200 MG in SODIUM CHLORIDE 0.9% 250 ML IV SCH (03:55)
[2022-02-23 06:34] LABS: Basophils % 0.3 % (0.0-0.8); Eosinophils # 0.2 10*3/uL (0.0-0.87); Eosinophils % 2.8 % (0.00-10.9); Hematocrit 29.3 VOL% (42.0-52.0); Immature Granulocytes % 0.7 %; Immature Granulocytes Absolute 0.04 #; Lymphocytes # 1.8 10*3/uL (1.4-4.0); Lymphocytes % 28.6 % (21.2-54.2); Mean Corpuscular HGB Conc 28.3 GM/DL (32-36); Mean Corpuscular Volume 80.9 FL (87-102); Mean Platelet Volume 11.4 FL (9.6-12.0); Monocytes # 0.7 10*3/uL (0.11-0.8); Monocytes % 10.6 % (1.7-12.7); Platelet Count 345 T/CUMM (130-400); Red Blood Count 3.62 MC/CUMM (3.8-5.5); Red Cell Distribution Width 16.9 % (9.3-17.3); White Blood Count 6.1 T/CUMM (4-12)
[2022-02-23 06:39] LABS: Hemoglobin 8.3 GM/DL (14.0-18.0)
[2022-02-23 06:46] LABS: Calcium 9.3 MG/DL (8.5-10.1); Osmolality,Calculated 275.5 MOS/KG (273-304); Potassium 3.6 MMOL/L (3.5-5.1)
[2022-02-23] MEDS: MORPHINE 2 MG/1 ML SYRINGE IV PRN ×2 (06:47→11:29)
[2022-02-23] MEDS: INSULIN LISPRO 100 UNIT/ML SUBCUT SCH ×3 (06:49→18:00)
[2022-02-23 07:09] LABS: Folate 20.45 NG/ML (5.38-24.0); Vitamin B12 607 PG/ML (211-911)
[2022-02-23 08:34] LABS: Sedimentation Rate-Westergren 47 MM/HR (0-20)
[2022-02-23] MEDS: DEXTROSE 5% NACL 0.9% 1,000 ML IV SCH ×2 (08:35→23:16)
[2022-02-24] MEDS: MORPHINE 2 MG/1 ML SYRINGE IV PRN ×2 (00:14→05:58)
[2022-02-24] MEDS: INSULIN LISPRO 100 UNIT/ML SUBCUT SCH ×4 (01:25→17:59)
[2022-02-24] MEDS: PANTOPRAZOLE INJ 200 MG in SODIUM CHLORIDE 0.9% 250 ML IV SCH (05:35)
[2022-02-24 08:10] LABS: Calcium 9.3 MG/DL (8.5-10.1)
[2022-02-24] MEDS: LACTATED RINGERS 1,000 ML IV SCH (09:07)
[2022-02-24 10:20] LABS: Basophils % 0.1 % (0.0-0.8); Eosinophils # 0.2 10*3/uL (0.0-0.87); Eosinophils % 2.4 % (0.00-10.9); Hematocrit 31.8 VOL% (42.0-52.0); Hemoglobin 9.2 GM/DL (14.0-18.0); Immature Granulocytes % 0.3 %; Immature Granulocytes Absolute 0.03 #; Lymphocytes # 2.1 10*3/uL (1.4-4.0); Lymphocytes % 21.4 % (21.2-54.2); Mean Corpuscular HGB Conc 28.9 GM/DL (32-36); Mean Corpuscular Volume 80.7 FL (87-102); Mean Platelet Volume 11.5 FL (9.6-12.0); Monocytes # 1.2 10*3/uL (0.11-0.8); Monocytes % 12.6 % (1.7-12.7); Neutrophils % 63.2 % (38.7-73.9); Platelet Count 349 T/CUMM (130-400); Red Blood Count 3.94 MC/CUMM (3.8-5.5); Red Cell Distribution Width 16.8 % (9.3-17.3); White Blood Count 9.7 T/CUMM (4-12)
[2022-02-24 10:33] LABS: Anisocytosis 1+; Ovalocytes Few; Platelet Estimate Normal; Tear Drop Cells Few
[2022-02-24 10:34] LABS: Polychromasia Slight
[2022-02-24] MEDS ORDERED: LIDOCAINE 2% 5 ML VIAL ONE (11:38)
[2022-02-24] MEDS ORDERED: propofoL 200 MG/20 ML VIAL IV ONE (11:38)
[2022-02-24] MEDS: DEXTROSE 5% NACL 0.9% 1,000 ML IV SCH (18:46)
[2022-02-25] MEDS: INSULIN LISPRO 100 UNIT/ML SUBCUT SCH ×2 (01:06→06:59)
[2022-02-25] MEDS: DEXTROSE 5% NACL 0.9% 1,000 ML IV SCH (08:11)
[2022-02-25] MEDS: LACTATED RINGERS 1,000 ML IV SCH (08:12)
[2022-02-25 11:58] VITALS: BP 155/52
[2022-02-25] MEDS ORDERED: PANTOPRAZOLE 40 MG VIAL IV SCH (21:00)
== END 2022-02-25 13:00 | disposition home or self-care (01) | DRG 375 ==
LOC: N.ED 15:44 → N.EDINP 02-23 01:26 → N.3E 02-23 08:38
PROVIDERS: ADMIT Family Medicine; ATTEND Family Medicine